=== PATIENT | female | born 1975 | race Two or more races ===

== ENCOUNTER 2022-09-12 17:51 | Emergency (ER) | payer BC ==
[~2022-09-12] VITALS: Ht 177.8 cm; Wt 68.0 kg
[2022-09-12] MEDS ORDERED: LEXAPRO5 MG PO (18:42)
[2022-09-12] MEDS ORDERED: TOPAMAX15 MG PO (18:42)
[2022-09-12] MEDS ORDERED: CLONAZEPAM0.125 MG PO (18:42)
== END 2022-09-12 20:46 | disposition home or self-care (01) ==
LOC: ER 17:51
DX: M25.511 Pain in right shoulder (principal); Z88.2 Allergy status to sulfonamides; Z88.8 Allergy status to other drugs, medicaments and biological substances

== ENCOUNTER 2022-09-16 12:16 | Emergency (ER) | payer BC ==
[~2022-09-16] VITALS: Ht 177.8 cm; Wt 68.0 kg
[~2022-09-16 12:16] MED LIST: CLONAZEPAM0.125 MG PO; LEXAPRO5 MG PO; TOPAMAX15 MG PO
== END 2022-09-16 14:03 | disposition home or self-care (01) ==
LOC: ER 12:16
DX: M71.9 Bursopathy, unspecified (principal); Z88.8 Allergy status to other drugs, medicaments and biological substances; Z88.2 Allergy status to sulfonamides